=== PATIENT | female | born 1935 | race Caucasian/White ===

== ENCOUNTER 2018-05-04 19:04 | Emergency (ER) | payer MEDICARE, BC ==
--- NOTE | 2018-05-04 19:51 | EDM.PDOC ---
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 Was stung again today other left volar mid forearm and has mild swelling and she was advised by her colleagues where she lives in an apartment she needed to be seen by a Dr. They were sure she was having a allergic reaction. It has now been one hour since she was stung by the bee and she has no shortness of breath lightheadedness palpitations or difficulty speaking sore throat abdominal pain nausea or diarrhea. Past Medical History Cardiovascular History: Reports: High Cholesterol Musculoskeletal History: Reports: Osteoporosis Endocrine/Metabolic History: Reports: Other (See Below) Other Endocrine/Metabolic History: Hx parathyroid problem. Social & Family History - Tobacco Use Smoking Status *Q: Never Smoker ED ROS GENERAL - Review of Systems Review Of Systems: See Below Constitutional: Reports: No Symptoms HEENT: Reports: No Symptoms Respiratory: Reports: No Symptoms Cardiovascular: Reports: No Symptoms Endocrine: Reports: No Symptoms GI/Abdominal: Reports: No Symptoms : Reports: No Symptoms Musculoskeletal: Reports: Other (Previous spontaneous vertebra fracture so she has chronic back pain which she deals with intermittently with pain medicine) Skin: Reports: Erythema Neurological: Reports: No Symptoms Psychiatric: Reports: No Symptoms Hematologic/Lymphatic: Reports: No Symptoms Immunologic: Reports: No Symptoms ED EXAM, GENERAL - Physical Exam Exam: See Below Free Text/Narrative:: Right pleasant woman with great heart space in no acute distress Exam Limited By: No Limitations General Appearance: Alert, WD/WN, No Apparent Distress Eye Exam: Bilateral Eye: Normal Inspection Ears: Normal Canal Ear Exam: Bilateral Ear: Auricle Normal Nose: Normal Inspection Throat/Mouth: Normal Inspection Head: Atraumatic Neck: Normal Inspection, Supple, Non-Tender, Full Range of Motion Respiratory/Chest: No Respiratory Distress, Lungs Clear, Normal Breath Sounds, No Accessory Muscle Use Cardiovascular: Normal Peripheral Pulses, Regular Rate, Rhythm, No Edema, No Gallop, No JVD, No Murmur, No Rub Peripheral Pulses: 1+: Radial (L), Radial (R) GI/Abdominal: Normal Bowel Sounds, Soft, Non-Tender, No Organomegaly, No Distention, No Abnormal Bruit, No Mass (Female) Exam: Deferred Rectal (Female) Exam: Deferred Back Exam: Normal Inspection Neurological: Alert, Oriented, Normal Cognition, No Motor/Sensory Deficits Psychiatric: Normal Affect Skin Exam: Warm, Dry, Erythema (Erythema 6 cm time are slightly reduced. Volar left forearm without meningitis nontender and blanches to pressure) Course - Vital Signs Last Recorded V/S: Last Vital Signs Temp 36.5 C 05/04/18 19:23 Pulse 89 05/04/18 19:23 Resp 16 05/04/18 19:23 BP 164/98 H 05/04/18 19:23 Pulse Ox 98 05/04/18 19:23 Departure - Departure Time of Disposition: 19:40 (She has a bee sting with hyaluronidase from the hymenoptera venom causing cellular disruption and leakage resulting in cytokine and histamine release into the soft tissues.) Disposition: Home, Self-Care 01 Condition: Good Clinical Impression: Hymenoptera sting Qualifiers: Encounter type: initial encounter Injury intent: accidental or unintentional Qualified Code(s): T63.481A - Toxic effect of venom of other arthropod, accidental (unintentional), initial encounter - Discharge Information *PRESCRIPTION DRUG MONITORING PROGRAM REVIEWED*: Not Applicable *COPY OF PRESCRIPTION DRUG MONITORING REPORT IN PATIENT [place]: Not Applicable Referrals: Kristin Victor, RESIDENCE COUNSELOR [Primary Care Provider] - Forms: ED Department Discharge Additional Instructions: you are not having an allergic reaction to bee stings. There is no suggestion of anaphylaxis. Right now U have enzyme release which caused swelling and erythema site of the bee sting. Using plain ice and Benadryl will be helpful. Follow-up with Drs. khan
== END 2018-05-04 19:55 | disposition home or self-care (01) ==
LOC: FB.ED 19:04
DX: T63.441A Toxic effect of venom of bees, accidental (unintentional), initial encounter (principal)
CPT/HCPCS: 99281

== ENCOUNTER 2018-10-28 09:16 | Day surgery (SDC) | payer MEDICARE, BC ==
[2018-10-28] MEDS ORDERED: Midazolam 1 MG/ML 2 ML SDV IV ONE (09:17)
[2018-10-28] MEDS ORDERED: fentaNYL 100 MCG/2 ML SDV IV ONE (09:17)
--- NOTE | 2018-10-28 19:01 | OR ---
DATE OF OPERATION: 10/28/2018 SURGEON: Ifeoma Dahl MD PREOPERATIVE DIAGNOSIS: Visually significant cataract, right eye. POSTOPERATIVE DIAGNOSIS: Visually significant cataract, right eye. PROCEDURES PERFORMED: Phacoemulsification with intraocular lens placement, right eye. ASSISTANTS: None. ANESTHESIA: Local with sedation. COMPLICATIONS: None. BLOOD LOSS: None. IMPLANTS: Eitan [id number], 21.5 diopter lens implanted. CDE: 7.16. DESCRIPTION OF PROCEDURE: After risks and benefits were reviewed with the patient, consent was obtained in the preoperative area, and the operative eye was marked with a surgical pen. The patient received dilating drops and moxifloxacin, along with ketorolac in the preoperative area. The patient was taken to the operating room, where a time-out was performed, and the patient was placed under monitored anesthesia care. Topical tetracaine was used for anesthesia. The operative eye was prepped and draped for ophthalmic surgery, and the microscope was brought into position and focussed. A paracentesis incision was made, followed by injection of preservative-free 1% lidocaine into the anterior chamber, followed by injection of Viscoat into the anterior chamber. A microkeratome blade was used to make a corneal limbal incision temporarily. A cystotome was used to make the beginning of the capsulorrhexis, which was carried around 360 degrees in a curvilinear fashion using Utrata forceps. A Freeman cannula with BSS was used to hydrodissect and hydrodelineate the nucleus. The nucleus was removed in a divide and conquer manner using phacoemulsification. Irrigation and aspiration were used to remove the remaining cortical material. Provisc was used to inflate the capsular bag, and a pre-loaded Eitan AU00T0, 21.5 diopter lens, serial number [id number] was injected into the capsular bag. A Sinskey hook was used to position and center the lens. Next, irrigation and aspiration was used to remove any remaining viscoelastic and cortical material from the anterior chamber. BSS on a cannula was used to inflate the anterior chamber and hydrate the wound. The wound was checked and found to be watertight. Drapes were removed and the eye was cleaned. A drop of brimonidine 0.15% and a drop of TobraDex was placed. The eye was shielded, and the patient was taken to the recovery room in stable condition. /[id number] AK/JORI CC: ABHISHEK PALMER, [facility]
== END 2018-10-28 12:04 | disposition home or self-care (01) ==
LOC: FB.SDS 09:16
PROVIDERS: ATTEND Ophthalmology
DX: H26.9 Unspecified cataract (principal); K21.9 Gastro-esophageal reflux disease without esophagitis; I10 Essential (primary) hypertension; E78.5 Hyperlipidemia, unspecified; Z79.899 Other long term (current) drug therapy
CPT/HCPCS: 00142; 66984; J2250; J3010; V2632

== ENCOUNTER 2020-06-15 08:31 | Emergency (ER) | payer MEDICARE, BC ==
[2020-06-15] MEDS ORDERED: Acetaminophen 500 MG Tab PO ONE (09:19)
--- NOTE | 2020-06-15 09:29 | EDM.PDOC ---
ED HPI GENERAL MEDICAL PROBLEM - General Chief Complaint: Upper Extremity Injury/Pain Stated Complaint: LT SHOULDER PAIN Time Seen by Provider: 06/15/20 08:45 Source of Information: Reports: Patient, Family History Limitations: Reports: No Limitations - History of Present Illness INITIAL COMMENTS - FREE TEXT/NARRATIVE: Patient presented to the ED because he tripped and fell and landed on her left shoulder last night. She c/o left shoulder and left arm pain. She rates it 6/10. L shoulder Pain Score (Numeric/FACES): 10 - Related Data Allergies Allergy/AdvReac Type Severity Reaction Status Date / Time amoxicillin Allergy Diarrhea Verified 06/15/20 08:37 celecoxib [From Celebrex] Allergy Other Verified 06/15/20 08:37 tramadol Allergy Nausea and Verified 06/15/20 08:37 Vomiting Home Meds: Home Meds Acetaminophen 500 mg PO Q4HR PRN 05/05/18 [History] Calcium Carbonate/Vitamin D3 [Caltrate 600 + D Soft Chew Tab] 1 each PO BID 05/05/18 [History] Cholecalciferol (Vitamin D3) [Vitamin D3] 1,000 units PO DAILY 05/05/18 [History] Simvastatin 20 mg PO BEDTIME 05/05/18 [History] atenoloL [Atenolol] 25 mg PO BEDTIME 05/05/18 [History] Past Medical History HEENT History: Reports: Cataract Cardiovascular History: Reports: Arrhythmia, High Cholesterol, Hypertension Musculoskeletal History: Reports: Osteoarthritis, Osteoporosis, Other (See Below) Other Musculoskeletal History: OSTEOPENIA; DJD Endocrine/Metabolic History: Reports: Other (See Below) Other Endocrine/Metabolic History: Hx parathyroid problem. Oncologic (Cancer) History: Reports: Basal Cell Carcinoma - Infectious Disease History Infectious Disease History: Reports: Chicken Pox, Measles, Shingles - Past Surgical History Head Surgeries/Procedures: Reports: None HEENT Surgical History: Reports: Cataract Surgery, Other (See Below) Other HEENT Surgeries/Procedures: bilat cataract surgery Cardiovascular Surgical History: Reports: None GI Surgical History: Reports: Colonoscopy, EGD Endocrine Surgical History: Reports: Parathyroidectomy Oncologic Surgical History: Reports: Other (See Below) Other Oncologic Surgeries/Procedures: skin CA removed from nose Social & Family History - Family History Family Medical History: No Pertinent Family History - Tobacco Use Tobacco Use Status *Q: Never Tobacco User - Caffeine Use Caffeine Use: Reports: Coffee, Tea - Recreational Drug Use Recreational Drug Use: No Review of Systems - Review of Systems Review Of Systems: See Below Constitutional: Reports: No Symptoms Ears: Reports: No Symptoms Nose: Reports: No Symptoms Mouth/Throat: Reports: No Symptoms Respiratory: Reports: No Symptoms Cardiovascular: Reports: No Symptoms GI/Abdominal: Reports: No Symptoms Genitourinary: Reports: No Symptoms Musculoskeletal: Reports: Other (left shoulder/arm pain) Skin: Reports: No Symptoms Neurological: Reports: No Symptoms Psychiatric: Reports: No Symptoms ED EXAM, GENERAL - Physical Exam Exam: See Below Exam Limited By: No Limitations General Appearance: Alert, No Apparent Distress Ears: Normal External Exam, Normal Canal Nose: Normal Inspection, Normal Mucosa Throat/Mouth: Normal Inspection, Normal Lips Head: Atraumatic, Normocephalic Neck: Normal Inspection, Supple, Non-Tender Respiratory/Chest: No Respiratory Distress, Lungs Clear, Normal Breath Sounds Cardiovascular: Normal Peripheral Pulses, Regular Rate, Rhythm, No Edema, No Gallop GI/Abdominal: Normal Bowel Sounds, Soft, Non-Tender, No Organomegaly Back Exam: Normal Inspection, Full Range of Motion Extremities: Normal Inspection, Other (tenderness left AC joint and left mid humerus) Course - Vital Signs Text/Narrative:: Xray left shoulder/humerus-see result Tylenol 1000 mg po x2 arm sling Last Recorded V/S: Last Vital Signs Temp 36.5 C 06/15/20 08:39 Pulse 96 06/15/20 08:39 Resp 18 06/15/20 08:39 BP 145/123 H 06/15/20 08:39 Pulse Ox 100 06/15/20 08:39 - Orders/Labs/Meds Orders: Active Orders 24 hr Category Date Time Status Humerus Lt [CR] Stat Exams 06/15/20 08:50 Taken Shoulder Comp Lt [CR] Stat Exams 06/15/20 08:50 Taken Meds: Medications Discontinued Medications Generic Name Dose Route Start Last Admin Trade Name Marcia PRN Reason Stop Dose Admin Acetaminophen 1,000 mg 06/15/20 09:19 06/15/20 09:25 Tylenol Extra Strength PO 06/15/20 09:20 1,000 mg ONETIME ONE Administration Departure - Departure Time of Disposition: 09:30 Disposition: Home, Self-Care 01 Condition: Good Clinical Impression: Musculoskeletal pain, Fall, Left shoulder strain - Discharge Information Instructions: Shoulder Sprain, Musculoskeletal Pain Referrals: Christ Beltran MD [Primary Care Provider] - Forms: ED Department Discharge Additional Instructions: Please read discharge instructions on shoulder strain Apply ice Take tylenol 1000 mg every 8 hours as needed for pain Follow up as needed Sepsis Event Note (ED) - Evaluation Sepsis Screening Result: No Definite Risk - Focused Exam Vital Signs: Vital Signs Temp Pulse Resp BP Pulse Ox 06/15/20 08:39 36.5 C 96 18 145/123 H 100 - My Orders Last 24 Hours: My Active Orders 06/15/20 08:50 Humerus Lt [CR] Stat Shoulder Comp Lt [CR] Stat - Assessment/Plan Last 24 Hours: My Active Orders 06/15/20 08:50 Humerus Lt [CR] Stat Shoulder Comp Lt [CR] Stat
--- NOTE | 2020-06-15 10:22 | CR ---
INDICATION: Fall, left upper extremity injury. LEFT SHOULDER: AP and Y views of the left shoulder were obtained 06/15/20 - no comparison. There is now noted an anterior dislocation of the humeral head with respect to the glenoid fossa. No definite fracture site was identified. Degenerative changes of moderate degree are noted at the AC joint. Overall bone density appeared to be fairly normal for age. IMPRESSION: 1. Anterior dislocation at the glenohumeral joint. 2. Degenerative changes AC joint. MTDD
--- NOTE | 2020-06-15 10:25 | CR ---
INDICATION: Fall, left upper extremity injury. LEFT HUMERUS: Two views of the left humerus reveal an anterior dislocation at the glenohumeral joint with degenerative changes at the AC joint. The remainder of the humerus was unremarkable. IMPRESSION: 1. Anterior dislocation at the glenohumeral joint. 2. Degenerative changes AC joint. MTDD
== END 2020-06-15 09:40 | disposition home or self-care (01) ==
LOC: FB.ED 08:31
DX: S46.912A Strain of unspecified muscle, fascia and tendon at shoulder and upper arm level, left arm, initial encounter (principal); E78.00 Pure hypercholesterolemia, unspecified; I10 Essential (primary) hypertension; Z88.1 Allergy status to other antibiotic agents; Z88.5 Allergy status to narcotic agent; Z88.8 Allergy status to other drugs, medicaments and biological substances; Z79.899 Other long term (current) drug therapy; W01.0XXA Fall on same level from slipping, tripping and stumbling without subsequent striking against object, initial encounter
CPT/HCPCS: 73030; 73060; 99283; A9270; 99282

== ENCOUNTER 2021-12-31 19:55 | Emergency (ER) | payer MEDICARE, BC | END 2021-12-31 21:15 | disposition home or self-care (01) | LOC: FB.ED 19:55 | DX: R55 Syncope and collapse (principal); E78.00 Pure hypercholesterolemia, unspecified; I10 Essential (primary) hypertension; Z88.5 Allergy status to narcotic agent; Z88.0 Allergy status to penicillin; Z88.8 Allergy status to other drugs, medicaments and biological substances; Z79.899 Other long term (current) drug therapy | CPT/HCPCS: 81001; 99282; 99284 ==